=== PATIENT | female | born 1955 | race Two or more races ===

== ENCOUNTER 2023-09-09 09:53 | Inpatient (IN) | payer MEDICARE, OTHER ==
[~2023-09-09] VITALS: Ht 167.6 cm; Wt 66.9 kg
[2023-09-09] MEDS ORDERED: ONDANSETRON HCL 4 MG/2 ML VIAL IV ONE (10:45)
[2023-09-09] MEDS ORDERED: PANTOPRAZOLE 40 MG/10 ML VIAL INJ IV ONE (11:00)
[2023-09-09 11:15] LABS: Basophils # (auto) 0 10 ^3/uL (0-0.2); Basophils % (auto) 0.2 % (0.0-2.0); Eosinophils # (auto) 0 10 ^3/uL (0-0.8); Hematocrit 47.1 % (36.0-46.0); Hemoglobin 15.6 g/dL (12.2-16.2); Lymphocytes # (auto) 1.6 10 ^3/uL (0.4-5.4); Lymphocytes % (auto) 5.8 % (10.0-50.0); Mean Corpuscular Hemoglobin 27.4 pg (28.0-32.0); Mean Corpuscular Hgb Conc. 33.1 g/dL (32.0-36.0); Monocytes # (auto) 2.4 10 ^3/uL (0-1.3); Monocytes % (auto) 9.2 % (0.0-12.0); Neutrophils # (auto) 22.5 10 ^3/uL (1.6-8.6); Neutrophils % (auto) 84.8 % (37.0-80.0); Nucleated Red Blood Cells % 0.1 %; Red Blood Cells 5.67 10^6/uL (4.0-5.20); Red Cell Distribution Width 14.7 % (11.8-14.3); White Blood Cell 26.6 10^3/uL (4.4-10.8)
[2023-09-09 11:33] LABS: Alanine Aminotransferase 20 U/L (7-40); Albumin 5.6 g/dL (3.2-4.8); Alkaline Phosphatase 84 U/L (46-116); Anion Gap 30.00001 (5-15); Aspartate Aminotransferase 31 U/L (13-40); BUN/Creatinine Ratio 14.7 (10.0-20.0); Blood Urea Nitrogen 27 mg/dL (9-23); Calcium 10.4 mg/dL (8.7-10.4); Chloride 96 mmol/L (98-107); Glucose 130 mg/dL (74-106); Sodium 136 mmol/L (136-145)
[2023-09-09 11:34] LABS: Bilirubin, Total 0.7 mg/dL (0.2-1.0); Total Protein 8.9 g/dL (5.7-8.2)
[2023-09-09 11:54] LABS: Carbon Dioxide < 10 mmol/L (20-30)
[2023-09-09] MEDS ORDERED: INSULIN LANTUS (GLARGINE) 1 /0.01ml (100units/ml) SC ONE (12:00)
[2023-09-09] MEDS ORDERED: INSULIN DRIP 100 UNIT/100ML 100 ML IV SCH (12:00)
[2023-09-09] MEDS ORDERED: DEXTROSE (50%) 50ML SYRG IV PRN ×2 (12:00→16:30)
[2023-09-09] MEDS: ACCU-CHEK COMFORT CURVE STRIP VI SCH ×3 (12:00→15:00)
[2023-09-09] MEDS ORDERED: VANCOMYCIN 1GM/200ML 200 ML IV ONE (12:45)
[2023-09-09] MEDS ORDERED: SODIUM CHLORIDE 0.9% 1,000 ML IV ONE ×2 (12:45)
[2023-09-09] MEDS ORDERED: levoFLOXacin 500MG 100 ML IV ONE (12:45)
[2023-09-09 13:58] LABS: Urine Bacteria None Seen /hpf (None Seen)
[2023-09-09] MEDS ORDERED: IOHEXOL 350 MG/ML 100ML IJ ONE (14:15)
[2023-09-09] MEDS ORDERED: D5W/SOD CHL 0.45% 1,000 ML IV ONE (14:15)
[2023-09-09 15:00] LABS: COVID19 ANTIGEN SOFIA FIA NEGATIVE (NEGATIVE)
[2023-09-09 15:50] LABS: Urine Clarity HAZY (Clear); Urine Color Yellow (Yellow); Urine Specific Gravity 1.021 (1.001-1.035)
[2023-09-09 15:51] LABS: Urine Protein, UAD 3+ (Negative)
[2023-09-09 15:52] LABS: Urine Blood 3+ /uL (Negative); Urine Mucus FEW (None Seen); Urine WBC 5 /hpf (0 - 5)
[2023-09-09] MEDS ORDERED: NITROGLYCERIN 0.4 MG SL TAB SL PRN (16:30)
[2023-09-09] MEDS: SODIUM CHLORIDE 0.9% 1,000 ML IV SCH ×2 (16:30→18:43)
[2023-09-09] MEDS ORDERED: MORPHINE SULFATE INJ 2 MG/ml SYRG IV PRN (16:30)
[2023-09-09] MEDS ORDERED: DOCUSATE SOD 100 MG CAP PO PRN (16:30)
[2023-09-09] MEDS ORDERED: ACETAMINOPHEN 325 MG TAB PO PRN (16:30)
[2023-09-09] MEDS ORDERED: ROSU1TAB15 PO (16:44)
[2023-09-09] MEDS ORDERED: METO-289 PO (16:44)
[2023-09-09] MEDS ORDERED: AMLO1TAB23 PO (16:44)
[2023-09-09] MEDS ORDERED: InsuLIN REG 1unit/0.01ml Soln (100units/ml) SC SCH (17:00)
[2023-09-09] MEDS ORDERED: ACCU-CHEK COMFORT CURVE STRIP VI SCH (17:00)
[2023-09-09 17:12] LABS: Alanine Aminotransferase 12 U/L (7-40); Albumin 4.4 g/dL (3.2-4.8); Alkaline Phosphatase 59 U/L (46-116); Anion Gap 18 (5-15); Aspartate Aminotransferase 22 U/L (13-40); BUN/Creatinine Ratio 12.4 (10.0-20.0); Bilirubin, Total 0.5 mg/dL (0.2-1.0); Blood Urea Nitrogen 19 mg/dL (9-23); Calcium 7.9 mg/dL (8.7-10.4); Carbon Dioxide 13 mmol/L (20-30); Chloride 105 mmol/L (98-107); Glucose 83 mg/dL (74-106); Potassium 3.6 mmol/L (3.5-5.1); Sodium 136 mmol/L (136-145)
[2023-09-09 17:15] LABS: Triglycerides 112 mg/dL (< 150)
[2023-09-09 17:16] LABS: LDL Cholesterol 59 mg/dL (< 100)
[2023-09-09 17:17] LABS: Cholesterol 146 mg/dL (< 200); HDL Cholesterol 53 mg/dL (40-59)
[2023-09-09 19:09] VITALS: PULSE 87; RESP 20; O2SAT 95
[2023-09-09 19:52] LABS: INR 1.07 (0.9-1.15); Partial Thromboplastin Time 27.2 SEC (24.5-34.5); Prothrombin Time 11.2 sec (9.3-11.8)
[2023-09-09] MEDS: ATORVASTATIN 20 MG TAB PO SCH (21:43)
[2023-09-09] MEDS: PIPERACILLIN-TAZOB 3.375GM 100 ML IV SCH (21:44)
[2023-09-09] MEDS: metroNIDAZOLE 500MG/100ML 100 ML IV SCH (21:44)
[2023-09-09 23:26] VITALS: PULSE 91; RESP 11; O2SAT 96
[2023-09-10] MEDS: metroNIDAZOLE 500MG/100ML 100 ML IV SCH ×3 (06:05→21:40)
[2023-09-10] MEDS: PIPERACILLIN-TAZOB 3.375GM 100 ML IV SCH ×3 (06:05→22:24)
[2023-09-10 08:01] LABS: Basophils # (auto) 0.1 10 ^3/uL (0-0.2); Basophils % (auto) 0.4 % (0.0-2.0); Eosinophils # (auto) 0.1 10 ^3/uL (0-0.8); Eosinophils % (auto) 0.4 % (0.0-7.0); Hematocrit 40.6 % (36.0-46.0); Hemoglobin 13.6 g/dL (12.2-16.2); Lymphocytes # (auto) 1.3 10 ^3/uL (0.4-5.4); Lymphocytes % (auto) 9.7 % (10.0-50.0); Mean Corpuscular Hemoglobin 28.2 pg (28.0-32.0); Mean Corpuscular Hgb Conc. 33.5 g/dL (32.0-36.0); Mean Corpuscular Volume 83.9 fL (80.0-100.0); Monocytes # (auto) 1.8 10 ^3/uL (0-1.3); Neutrophils # (auto) 10.6 10 ^3/uL (1.6-8.6); Neutrophils % (auto) 76.5 % (37.0-80.0); Nucleated Red Blood Cells % 0.1 %; Red Blood Cells 4.83 10^6/uL (4.0-5.20); Red Cell Distribution Width 14.9 % (11.8-14.3); White Blood Cell 13.8 10^3/uL (4.4-10.8)
[2023-09-10 08:31] LABS: Alanine Aminotransferase 13 U/L (7-40); Albumin 4.5 g/dL (3.2-4.8); Alkaline Phosphatase 61 U/L (46-116); Anion Gap 13 (5-15); Aspartate Aminotransferase 34 U/L (13-40); BUN/Creatinine Ratio 10.1 (10.0-20.0); Bilirubin, Total 0.7 mg/dL (0.2-1.0); Blood Urea Nitrogen 14 mg/dL (9-23); Calcium 9.1 mg/dL (8.5-10.1); Carbon Dioxide 21 mmol/L (20-30); Chloride 104 mmol/L (98-107); Glucose 99 mg/dL (74-106); Potassium 3.1 mmol/L (3.5-5.1); Sodium 138 mmol/L (136-145)
[2023-09-10 08:32] LABS: Total Protein 7.2 g/dL (5.7-8.2)
[2023-09-10] MEDS: amLODIPine BESYLATE 5 MG TAB PO SCH (09:47)
[2023-09-10] MEDS: METOPROLOL SUCCINATE XL 50 MG TAB PO SCH (09:48)
[2023-09-10] MEDS ORDERED: PANTOPRAZOLE 40 MG/10 ML VIAL INJ IV SCH (10:00)
[2023-09-10] MEDS ORDERED: INSULIN LANTUS (GLARGINE) 1 /0.01ml (100units/ml) SC SCH (10:00)
[2023-09-10] MEDS: SODIUM CHLORIDE 0.9% 1,000 ML IV SCH ×2 (12:56→21:34)
[2023-09-10] MEDS: ONDANSETRON HCL 4 MG/2 ML VIAL IV PRN (19:09)
[2023-09-10] MEDS: ATORVASTATIN 20 MG TAB PO SCH (21:40)
[2023-09-11] VITALS (7 sets, daily range): BP systolic 105–139; BP diastolic 56–78; PULSE 58–92; RESP 15–20; TEMP 97.9–99.1; O2SAT 96–98
[2023-09-11] MEDS: ONDANSETRON HCL 4 MG/2 ML VIAL IV PRN (04:29)
[2023-09-11] MEDS: metroNIDAZOLE 500MG/100ML 100 ML IV SCH (06:00)
[2023-09-11] MEDS: PIPERACILLIN-TAZOB 3.375GM 100 ML IV SCH (06:00)
[2023-09-11 09:13] LABS: Basophils # (auto) 0.1 10 ^3/uL (0-0.2); Basophils % (auto) 0.5 % (0.0-2.0); Eosinophils # (auto) 0.1 10 ^3/uL (0-0.8); Eosinophils % (auto) 1.2 % (0.0-7.0); Hematocrit 40.2 % (36.0-46.0); Hemoglobin 13.2 g/dL (12.2-16.2); Lymphocytes # (auto) 1.8 10 ^3/uL (0.4-5.4); Lymphocytes % (auto) 15.1 % (10.0-50.0); Mean Corpuscular Hemoglobin 27.4 pg (28.0-32.0); Mean Corpuscular Hgb Conc. 32.8 g/dL (32.0-36.0); Mean Corpuscular Volume 83.3 fL (80.0-100.0); Monocytes # (auto) 1.6 10 ^3/uL (0-1.3); Monocytes % (auto) 13.5 % (0.0-12.0); Neutrophils # (auto) 8.2 10 ^3/uL (1.6-8.6); Neutrophils % (auto) 69.7 % (37.0-80.0); Red Blood Cells 4.82 10^6/uL (4.0-5.20); Red Cell Distribution Width 14.6 % (11.8-14.3); White Blood Cell 11.8 10^3/uL (4.4-10.8)
[2023-09-11 09:37] LABS: Alanine Aminotransferase 15 U/L (7-40); Alkaline Phosphatase 62 U/L (46-116); Anion Gap 10 (5-15); Aspartate Aminotransferase 32 U/L (13-40); BUN/Creatinine Ratio 5.4 (10.0-20.0); Blood Urea Nitrogen 6 mg/dL (9-23); Calcium 9.1 mg/dL (8.5-10.1); Carbon Dioxide 23 mmol/L (20-30); Chloride 103 mmol/L (98-107); Glucose 95 mg/dL (74-106); Potassium 3.5 mmol/L (3.5-5.1); Sodium 136 mmol/L (136-145)
[2023-09-11 09:38] LABS: Albumin 4.5 g/dL (3.2-4.8); Bilirubin, Total 0.7 mg/dL (0.2-1.0); Total Protein 7.3 g/dL (5.7-8.2)
[2023-09-11] MEDS: METOPROLOL SUCCINATE XL 50 MG TAB PO SCH (09:51)
[2023-09-11] MEDS: amLODIPine BESYLATE 5 MG TAB PO SCH (09:51)
[2023-09-11] MEDS ORDERED: POTASSIUM CHL 20 Meq TABLET PO ONE (10:15)
[2023-09-11] MEDS ORDERED: POLYETHYLENE GLYCOL 17 GM PWDR PO ONE (10:30)
[2023-09-11] MEDS ORDERED: PANTOPRAZOLE 40 MG TAB PO ONE (14:00)
[2023-09-11] MEDS: metroNIDAZOLE 500 MG TAB PO SCH ×2 (14:02→21:52)
[2023-09-11] MEDS: levoFLOXacin 500 MG TAB PO SCH (14:02)
[2023-09-11] MEDS: ONDANSETRON ODT 4 MG TAB PO PRN (19:53)
[2023-09-11] MEDS: ATORVASTATIN 20 MG TAB PO SCH (21:52)
[2023-09-12 05:09] VITALS: BP 111/70; PULSE 82; RESP 18; TEMP 97.8; O2SAT 96
[2023-09-12] MEDS: metroNIDAZOLE 500 MG TAB PO SCH ×2 (05:10→13:53)
[2023-09-12 08:00] VITALS: RESP 18
[2023-09-12 09:00] VITALS: BP 130/100; PULSE 93; RESP 20; TEMP 98.4; O2SAT 96
[2023-09-12] MEDS ORDERED: PANTOPRAZOLE 40 MG TAB PO SCH (10:00)
[2023-09-12] MEDS: amLODIPine BESYLATE 5 MG TAB PO SCH (10:20)
[2023-09-12] MEDS: levoFLOXacin 500 MG TAB PO SCH (10:20)
[2023-09-12] MEDS: METOPROLOL SUCCINATE XL 50 MG TAB PO SCH (10:20)
[2023-09-12 12:57] VITALS: BP 128/86; PULSE 89; RESP 20; TEMP 97.8; O2SAT 96
[2023-09-12 13:12] VITALS: TEMP 36.6
[2023-09-12] MEDS: ONDANSETRON ODT 4 MG TAB PO PRN (13:53)
[2023-09-12] MEDS ORDERED: LEVO500T91 PO (14:22)
[2023-09-12] MEDS ORDERED: ZOFR4T PO (14:22)
[2023-09-12] MEDS ORDERED: MET500T PO (14:22)
== END 2023-09-12 14:30 | disposition home or self-care (01) | DRG 871 ==
LOC: EDBD 09:53 → ER 09:53 → TELE 16:42 → TELE-EAST 09-10 22:57 → EAST 09-11 23:34
PROVIDERS: ADMIT Nurse Practitioner Family; ATTEND Internal Medicine
DX: A41.9 Sepsis, unspecified organism (principal); N17.0 Acute kidney failure with tubular necrosis; E87.4 Mixed disorder of acid-base balance; I10 Essential (primary) hypertension; E78.5 Hyperlipidemia, unspecified; F12.10 Cannabis abuse, uncomplicated; Z20.822 Contact with and (suspected) exposure to COVID-19; E87.6 Hypokalemia; K52.9 Noninfective gastroenteritis and colitis, unspecified; Z85.118 Personal history of other malignant neoplasm of bronchus and lung; Z90.710 Acquired absence of both cervix and uterus
CPT/HCPCS: 36415; 36600; 71045; 71275; 74176; 76705; 80053; 80061; 81001; 82010; 82805; 82962; 83036; 83605; 83690; 84443; 84484; 85025; 85379; 85610; 85730; 87040; 87426; 96365; 96368; 96375; 99291; C9113; G0378; J1956; J2405; J2543; J3490; Q0162

== ENCOUNTER 2024-08-24 08:46 | Inpatient (IN) | payer MEDICARE, OTHER ==
[~2024-08-24] VITALS: Ht 162.6 cm; Wt 60.1 kg
[~2024-08-24 08:46] MED LIST: AMLO1TAB23 PO; LEVO500T91 PO; MET500T PO; METO-289 PO; ROSU40TA47 PO; ZOFR4T PO
[2024-08-24 09:45] VITALS: PULSE 96; RESP 17; O2SAT 97
--- NOTE | 2024-08-24 09:50 | DVH ---
XY CHEST XRAY 1 VIEW, HISTORY: cough COMPARISON: XY CHEST PORTABLE on DOS: 09/09/23 XY CHEST PORTABLE on DOS: 09/09/23 TECHNICAL DATA: 1 view of the chest was obtained. FINDINGS: Lines and tubes: Right chest wall port. Cardiomediastinal silhouette: normal Pulmonary vasculature: normal Lung expansion: normal Lung airspace: Surgical jamel are seen in the left upper lung. Patchy left basilar airspace opacity . Lung interstitium: normal Pleura: Small left pleural effusion. Pneumothorax: no Bones: Unremarkable Other: no IMPRESSION: Surgical jamel are seen in the left upper lung. Patchy left basilar airspace opacity. Small left pl eural effusion.
--- NOTE | 2024-08-24 09:53 | ED.PDOC ---
History of Present Illness HPI Comments 69 y/o F, with a Hx of lung CA, HLD, HTN, and marijuana use, presents with c/o shortness of breath, cough, throat pain, and generalized bodyaches for 1 month, today. Patient endorses on unprovoked onset of symptoms that has been persisting for the past month and worsened, suddenly, today. Patient comments sitting upright and laying flat or moving improving and worsening symptoms, respectively. Patient states on being Dx with lung CA in 2019 and last having a PET scan for it a "few months ago" that was medically insignificant. She denies having any chest pain, palpitations, dizziness, fever, chills, or other associated symptoms or modifiers at this time. Chief Complaint: Shortness of Breath Time Seen by MD: 08:45 Primary Care Provider: antonia Smith Notes: Nurses Notes, Medications, Allergies Allergies: Coded Allergies: NO KNOWN ALLERGIES (Unverified , 09/09/23) Home Meds Active Scripts Ondansetron Odt 4MG Tab (ZOFRAN PO) 4 Mg Tb, 4 MG PO Q4HP PRN, #30 TAB Prov:TONY GORDON MD 09/12/23 Metronidazole (Metronidazole) 500 Mg Tab, 500 MG PO Q8HR, #21 TAB Prov:TONY GORDON MD 09/12/23 Levofloxacin Hemihydrate (LEVAQUIN 500 MG) 500 Mg Tab, 500 MG PO DAILY, #7 TAB Prov:TONY GORDON MD 09/12/23 Reported Medications Rosuvastatin Calcium (Rosuvastatin Calcium) 40 Mg Tab, 1 TAB PO DAILY 09/09/23 Metoprolol Succinate (Metoprolol Succinate Er) 50 Mg Tab, 1 TAB PO DAILY 09/09/23 Amlodipine Besylate (Amlodipine Besylate) 10 Mg Tab, 1 TAB PO DAILY 09/09/23 Information Source: Patient Mode of Arrival: Ambulatory Severity: Moderate Timing: Months Duration: Since onset Prehospital treatment: None Past Medical History PAST MEDICAL HISTORY: Cancer (lung ), High Lipids, HTN Surgical History: Appendectomy, Hysterectomy, Tonsillectomy Family History Family History: Family hx of Cancer Social History Smoker: Non-Smoker Alcohol: Denies ETOH Use Drugs: Marijuana Lives In: Home EENTM: reports: throat pain Respiratory: reports: cough, shortness of breath Musculoskeletal: reports: others (generalized bodyaches ) All Other Systems: Reviewed and Negative (negative unless otherwise stated above or in HPI) Physical Exam General Appearance: No Apparent Distress, Normal, Other (anxious appearing ) HEENT: Normal ENT Inspection, Pharynx Normal, TMs Normal Neck: Full Range of Motion, Non-Tender, Normal, Normal Inspection Respiratory: Chest Non-Tender, Lungs Clear, No Accessory Muscle Use, No Respiratory Distress, Normal Breath Sounds Cardiovascular: No Edema, No JVD, No Murmur, No Gallop, Normal Peripheral Pulses, Regular Rate/Rhythm Breast Exam: Deferred Gastrointestinal: No Organomegaly, Non Tender, No Pulsatile Mass, Normal Bowel Sounds, Soft Genitalia: Deferred Pelvic: Deferred Rectal: Deferred Extremities: No calf tenderness, Normal capillary refill, Normal inspection, Normal range of motion, Non-tender, No pedal edema Musculoskeletal : Apperance: Normal Neurologic: Alert, 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 Was a procedure done?: No Differential Dx Considerations may include: viral syndrome, URI, Covid19, PNA, pleural effusions X-Ray, Labs, Meds, VS Vital Signs Date Time Temp Pulse Resp B/P (MAP) Pulse Ox O2 Delivery O2 Flow Rate FiO2 08/24/24 12:56 98.8 96 17 122/68 (86) 96 98.8 08/24/24 12:56 96 17 96 Room Air 08/24/24 09:45 96 17 97 Room Air* 0 21 08/24/24 09:45 98.5 96 17 102/63 (76) 97 98.5 08/24/24 08:57 98.4 106 20 119/69 (86) 97 Lab Test 08/24/24 11:19 08/24/24 10:09 08/24/24 09:58 08/24/24 09:44 Range/Units Troponin I High Sensitivity < 3 L < 3 L </=34 ng/L White Blood Count 17.8 H 4.4-10.8 10^3/uL Red Blood Count 4.54 4.0-5.20 10^6/uL Hemoglobin 12.5 12.2-16.2 g/dL Hematocrit 37.8 36.0-46.0 % Mean Corpuscular Volume 83.3 80.0-100.0 fL Mean Corpuscular Hemoglobin 27.6 L 28.0-32.0 pg Mean Corpuscular Hemoglobin Concent 33.1 32.0-36.0 g/dL Red Cell Distribution Width 15.3 H 11.8-14.3 % Platelet Count 503 H 140-450 10^3/uL Mean Platelet Volume 6.8 L 6.9-10.8 fL Neutrophils (%) (Auto) 83.2 H 37.0-80.0 % Lymphocytes (%) (Auto) 7.5 L 10.0-50.0 % Monocytes (%) (Auto) 6.7 0.0-12.0 % Eosinophils (%) (Auto) 1.8 0.0-7.0 % Basophils (%) (Auto) 0.8 0.0-2.0 % Neutrophils # (Auto) 14.8 H 1.6-8.6 10 ^3/uL Lymphocytes # (Auto) 1.3 0.4-5.4 10 ^3/uL Monocytes # (Auto) 1.2 0-1.3 10 ^3/uL Eosinophils # (Auto) 0.3 0-0.8 10 ^3/uL Basophils # (Auto) 0.1 0-0.2 10 ^3/uL Nucleated Red Blood Cells 0.0 % Sodium Level 134 L 136-145 mmol/L Potassium Level 4.4 3.5-5.1 mmol/L Chloride Level 99 98-107 mmol/L Carbon Dioxide Level 26 20-31 mmol/L Anion Gap 9 5-15 Blood Urea Nitrogen 11 9-23 mg/dL Creatinine 1.10 H 0.550-1.02 mg/dL Glomerular Filtration Rate Calc 55 >90 mL/min BUN/Creatinine Ratio 10.0 10.0-20.0 Serum Glucose 110 H 74-106 mg/dL Calcium Level 10.4 8.7-10.4 mg/dL Magnesium Level 1.9 1.6-2.6 mg/dL Total Bilirubin 0.4 0.2-1.0 mg/dL Aspartate Amino Transferase (AST) 22 13-40 U/L Alanine Aminotransferase (ALT) 30 7-40 U/L Alkaline Phosphatase 105 46-116 U/L B-Type Natriuretic Peptide 36.91 0-100 pg/mL Total Protein 8.9 H 5.7-8.2 g/dL Albumin 5.1 H 3.2-4.8 g/dL D-Dimer, Quantitative 3.17 H 0.0-0.49 mg/L FEU Influenza Type A Antigen Negative Negative Influenza Type B Antigen Negative Negative SARS-CoV-2 Antigen (Rapid) Negative NEGATIVE [place] [address] Ph: [phone] DIAGNOSTIC IMAGING Diagnostic Imaging Report : [id number] Signed PATIENT: HONEY HASKINS ACCT: [id number] UNIT: [id number] : 1955 LOC: ER ROOM / BED: / AGE / SEX: 69 / F ADM STATUS: REG ER SERVICE 7 ORDERING PHYSICIAN: JUNE ARCINIEGA MD PROCEDURE(s): CXR1 - CHEST XRAY 1 VIEW REASON: cough ORDER NUMBER(s): [id number], ACCESSION NUMBER(s): [id number] XY CHEST XRAY 1 VIEW, HISTORY: cough COMPARISON: XY CHEST PORTABLE on DOS: 09/09/23 XY CHEST PORTABLE on DOS: 09/09/23 TECHNICAL DATA: 1 view of the chest was obtained. FINDINGS: Lines and tubes: Right chest wall port. Cardiomediastinal silhouette: normal Pulmonary vasculature: normal Lung expansion: normal Lung airspace: Surgical jamel are seen in the left upper lung. Patchy left basilar airspace opacity. Lung interstitium: normal Pleura: Small left pleural effusion. Pneumothorax: no Bones: Unremarkable Other: no IMPRESSION: Surgical jamel are seen in the left upper lung. Patchy left basilar airspace opacity. Small left pleural effusion. ATED BY: MED ROJAS MD DICTATED DATE/TIME: 08/24/24946 SIGNED BY: MED ROJAS MD SIGNED DATE/TIME: 08/24/24946 CC: Time of 1ST Reevaluation: 09:15 Reevaluation 1ST: Unchanged Patient Education/Counseling: Diagnosis, Treatment Family Education/Counseling: No Family Present Departure 1 Departure Time of Disposition: 13:23 Impression: Primary Impression: Chest pain Additional Impressions: Dyspnea Elevated d-dimer Disposition: 09 ADMITTED INPATIENT Admit to: Tele Condition: Guarded Discharged With: Self Critical Care Note Critical Care Time?: Yes (35 min-critical care time only) Stability Stability form required: No Heart Score Heart Score: Heart Score Response (Comments) Value History N/A 0 EKG N/A 0 Age >65 2 Risk Factors 1 or 2 risk factors 1 Troponin N/A 0 Total 3 I personally scribed for JUNE ARCINIEGA MD ([email or web address]) on 08/24/24 at 09:53. Electronically submitted by Tony Washington ([email or web address]). I personally scribed for JUNE ARCINIEGA MD ([email or web address]) on 08/24/24 at 10:08. Electronically submitted by Tony Washington ([email or web address]). JUNE ARCINIEGA MD Aug 24, 2024 09:53
[2024-08-24 10:21] LABS: Basophils # (auto) 0.1 10 ^3/uL (0-0.2); Eosinophils # (auto) 0.3 10 ^3/uL (0-0.8); Hematocrit 37.8 % (36.0-46.0); Monocytes # (auto) 1.2 10 ^3/uL (0-1.3)
[2024-08-24 10:23] LABS: Basophils % (auto) 0.8 % (0.0-2.0); Eosinophils % (auto) 1.8 % (0.0-7.0); Hemoglobin 12.5 g/dL (12.2-16.2); Lymphocytes # (auto) 1.3 10 ^3/uL (0.4-5.4); Lymphocytes % (auto) 7.5 % (10.0-50.0); Mean Corpuscular Hemoglobin 27.6 pg (28.0-32.0); Mean Corpuscular Hgb Conc. 33.1 g/dL (32.0-36.0); Mean Corpuscular Volume 83.3 fL (80.0-100.0); Monocytes % (auto) 6.7 % (0.0-12.0); Neutrophils # (auto) 14.8 10 ^3/uL (1.6-8.6); Neutrophils % (auto) 83.2 % (37.0-80.0); Platelet Count (auto) 503 10^3/uL (140-450); Red Blood Cells 4.54 10^6/uL (4.0-5.20); Red Cell Distribution Width 15.3 % (11.8-14.3); White Blood Cell 17.8 10^3/uL (4.4-10.8)
[2024-08-24 10:43] LABS: Alanine Aminotransferase 30 U/L (7-40); Alkaline Phosphatase 105 U/L (46-116); Anion Gap 9 (5-15); Aspartate Aminotransferase 22 U/L (13-40); Blood Urea Nitrogen 11 mg/dL (9-23); Calcium 10.4 mg/dL (8.7-10.4); Carbon Dioxide 26 mmol/L (20-31); Chloride 99 mmol/L (98-107); Magnesium 1.9 mg/dL (1.6-2.6); Potassium 4.4 mmol/L (3.5-5.1)
[2024-08-24 10:44] LABS: Bilirubin, Total 0.4 mg/dL (0.2-1.0)
[2024-08-24 11:12] LABS: COVID19 ANTIGEN SOFIA FIA NEGATIVE (NEGATIVE); Rapid Influenza A Negative (Negative); Rapid Influenza B Negative (Negative)
[2024-08-24 11:13] LABS: Albumin 5.1 g/dL (3.2-4.8); Glucose 110 mg/dL (74-106); Sodium 134 mmol/L (136-145); Total Protein 8.9 g/dL (5.7-8.2)
[2024-08-24] MEDS: IOHEXOL 350 MG/ML 100ML IJ ONE (12:51)
[2024-08-24 13:50] LABS: Urine Bacteria None Seen /hpf (None Seen)
[2024-08-24 14:11] LABS: Urine Blood TRACE /uL (Negative); Urine Clarity Turbid (Clear); Urine Color Yellow (Yellow); Urine Mucus FEW (None Seen); Urine Protein, UAD 1+ (Negative); Urine Specific Gravity 1.022 (1.001-1.035); Urine Urobilinogen 2 mg/dL (Negative); Urine WBC 11 /hpf (0 - 5)
--- NOTE | 2024-08-24 14:12 | DVH ---
CTA Chest with intravenous contrast INDICATION: r/o PE COMPARISON: CT CT ANGIO CHEST CONTRAST on DOS: 09/09/23 TECHNIQUE: Multidetector spiral CTA of the chest was performed of the chest with intravenous contrast . PULMONARY ANGIOGRAPHY PROTOCOL was utilized using a bolus-tracking technique centered on the main p ulmonary artery. Axial, coronal and sagittal multiplanar and MIP reformats were performed. Radiation Dose : 1. Chest: CTDI volume is 5.92 mGy. Dose-length product is 183.06 mGy*cm The dose indicators for CT are the volume Computed Tomography (CT) Dose Index (CTDIvol) and the Dose Length Product (DLP), and are measured in units of mGy and mGy-cm, respectively. These indicators are not patient dose, but values generated from the CT scanner acquisition factors. The report includes radiation exposure data for exposures received during this examination. Findings: Pulmonary artery: Evaluation of the peripheral pulmonary vasculature is limited due to respiratory motion. No large tonya tral or large segmental pulmonary embolism. Lower neck: Normal thyroid. Lungs: Postsurgical change in the left upper lobe. Slight interval increase in size of suprahilar mas s along the surgical jamel in the left upper lobe, now measuring approximately 2.0 x 1.4 cm. There is similar narrowing of left upper lobe pulmonary arteries within the mass. Slightly worsening nodula r interstitial thickening predominantly in the left lower lobe. Multiple pulmonary nodules again seen throughout the left lung, the largest in the left lower lobe measuring up to 5 mm, which appear over all similar in size and appearance when compared to prior. New indeterminate 3 mm nodule in the right lower lobe (3-74). Heart/Vascular Structures: Normal heart size. New small pericardial effusion. Right chest port cathet er terminates in the right atrium. Lymph Nodes: Mediastinal lymph node measuring 1.1 cm in short axis, adjacent to the left upper lobe / left suprahilar mass. Pleura: New loculated small left pleural effusion with regional pleural thickening, most prominently seen in posterior left lower lung. Musculoskeletal: No acute osseous abnormality. No suspicious intraosseous lesions. Soft tissues: Normal. Upper abdomen: Limited portions of the upper abdomen are unremarkable. IMPRESSION: 1. Evaluation of the peripheral pulmonary vasculature is limited due to respiratory motion. No large central or large segmental pulmonary embolism. 2. Postsurgical change in the left upper lobe. Slight interval increase in size of a suprahilar mass along the surgical jamel in the left upper lobe, now measuring approximately 2.0 x 1.4 cm, concerni ng for worsening neoplastic disease. Similar associated narrowing of left upper lobe pulmonary arteri es within the mass. 3. Slightly worsening nodular interstitial thickening predominantly in the left lower lobe which coul d be seen with lymphangitic carcinomatosis. 4. Overall similar pulmonary nodules throughout the left lung measuring up to 5 mm. New indeterminat e 3 mm nodule in the right lower lobe. 5. Indeterminate mediastinal lymph node measuring 1.1 cm in short axis, adjacent to the left upper lo be / left suprahilar mass. 6. New small pericardial effusion. New loculated small left pleural effusion with regional pleural th ickening. Findings could be related to the above neoplastic process.
[2024-08-24] MEDS ORDERED: ACETAMINOPHEN 325 MG TAB PO PRN (17:45)
[2024-08-24] MEDS ORDERED: MORPHINE SULFATE INJ 2 MG/ml SYRG IV PRN (17:45)
--- NOTE | 2024-08-24 17:58 | DVHHP2 ---
History of Present Illness History of Present Illness 69 y/o F, with a Hx of lung CA (per recent bone scan and 2month old PET, in remission; [facility]), HLD, HTN, and history of marijuana use, presents with c/o shortness of breath, cough, throat pain, and generalized bodyaches for 1 month. Patient has been having insidious onset of these symptoms. She has been suffering from these symptoms but today she finally thought of getting it checked up. She has high anxiety about the symptoms with concern of cancer. She also has pleuritic chest pain and anterior chest wall from her intractable cough. Patient states on being Dx with lung CA in 2019 and last having a PET scan for it a "few months ago" that was medically insignificant. She denies having any palpitations, dizziness, fever, chills, or other associated symptoms or modifiers at this time. Denies current use of marijuana or tobacco smoking. Review of Systems Review of Systems As per HPI Allergies: Coded Allergies: NO KNOWN ALLERGIES (Unverified , 09/09/23) Medications Current Medications Medications Dose Ordered Sig/John Route Start Time Stop Time Status Last Admin Dose Admin Acetaminophen/ Hydrocodone Bitart 1 tab Q4HP PRN PO 08/24/24 17:45 UNV Ondansetron HCl 4 mg Q4HP PRN IV 08/24/24 17:45 UNV Enoxaparin Sodium 40 mg DAILY SC 08/25/24 10:00 UNV Acetaminophen 650 mg Q6HP PRN PO 08/24/24 17:45 UNV Morphine Sulfate 2 mg Q4HPRN PRN IV 08/24/24 17:45 UNV Ceftriaxone Sodium 50 ml @ 100 mls/hr DAILY@09 IV 08/25/24 09:00 UNV Azithromycin 250 ml @ 125 mls/hr DAILY IV 08/25/24 10:00 UNV Ipratropium [place] 0.5 mg Q3HPRN PRN NEB 08/24/24 17:45 UNV Albuterol 2.5 mg Q3HPRN PRN NEB 08/24/24 17:45 UNV Lactated Ringer's 1,000 ml @ 150 mls/hr Q6H40M IV 08/24/24 17:45 08/24/24 21:00 UNV Exam Vital Signs Vital Signs Date Time Temp Pulse Resp B/P (MAP) Pulse Ox O2 Delivery O2 Flow Rate FiO2 08/24/24 15:08 100 18 136/81 (99) 96 08/24/24 12:56 98.8 98.8 08/24/24 12:56 Room Air 08/24/24 09:45 0 21 Exam GEN: Appears weak HEENT: NC/AT; dry mucous membranes CV: RRR, no m/r/g. LUNGS: Decreased lung sounds in all espitia, further decreased breath sounds in left lung espitia. ABD: Soft, NT/ND, NBS, no masses or organomegaly. EXT: skin Warm, well perfused. no rashes. No clubbing, cyanosis, or edema. NEURO: Ambulating with no limitations. No focal deficits. Labs/Xrays Labs Test 08/24/24 12:46 08/24/24 11:19 08/24/24 10:09 08/24/24 09:58 Range/Units Urine Color Yellow Yellow Urine Clarity Turbid H Clear Urine pH 6.0 5.0-9.0 Urine Specific [place] 1.022 1.001-1.035 Urine Protein 1+ H Negative Urine Ketones Negative Negative Urine Blood Trace H Negative /uL Urine Nitrite Negative Negative Urine Bilirubin Negative Negative Urine Urobilinogen 2 H Negative mg/dL Urine Leukocyte Esterase 1+ Negative /uL Urine RBC 3 0 - 4 /hpf Urine WBC 11 0 - 5 /hpf Urine Squamous Epithelial Cells Mod <5 /hpf Urine Bacteria None seen None Seen /hpf Urine Mucus Few None Seen Urine Glucose Normal Normal mg/dL Troponin I High Sensitivity < 3 L </=34 ng/L White Blood Count 17.8 H 4.4-10.8 10^3/uL Red Blood Count 4.54 4.0-5.20 10^6/uL Hemoglobin 12.5 12.2-16.2 g/dL Hematocrit 37.8 36.0-46.0 % Mean Corpuscular Volume 83.3 80.0-100.0 fL Mean Corpuscular Hemoglobin 27.6 L 28.0-32.0 pg Mean Corpuscular Hemoglobin Concent 33.1 32.0-36.0 g/dL Red Cell Distribution Width 15.3 H 11.8-14.3 % Platelet Count 503 H 140-450 10^3/uL Mean Platelet Volume 6.8 L 6.9-10.8 fL Neutrophils (%) (Auto) 83.2 H 37.0-80.0 % Lymphocytes (%) (Auto) 7.5 L 10.0-50.0 % Monocytes (%) (Auto) 6.7 0.0-12.0 % Eosinophils (%) (Auto) 1.8 0.0-7.0 % Basophils (%) (Auto) 0.8 0.0-2.0 % Neutrophils # (Auto) 14.8 H 1.6-8.6 10 ^3/uL Lymphocytes # (Auto) 1.3 0.4-5.4 10 ^3/uL Monocytes # (Auto) 1.2 0-1.3 10 ^3/uL Eosinophils # (Auto) 0.3 0-0.8 10 ^3/uL Basophils # (Auto) 0.1 0-0.2 10 ^3/uL Nucleated Red Blood Cells 0.0 % Sodium Level 134 L 136-145 mmol/L Potassium Level 4.4 3.5-5.1 mmol/L Chloride Level 99 98-107 mmol/L Carbon Dioxide Level 26 20-31 mmol/L Anion Gap 9 5-15 Blood Urea Nitrogen 11 9-23 mg/dL Creatinine 1.10 H 0.550-1.02 mg/dL Glomerular Filtration Rate Calc 55 >90 mL/min BUN/Creatinine Ratio 10.0 10.0-20.0 Serum Glucose 110 H 74-106 mg/dL Calcium Level 10.4 8.7-10.4 mg/dL Magnesium Level 1.9 1.6-2.6 mg/dL Total Bilirubin 0.4 0.2-1.0 mg/dL Aspartate Amino Transferase (AST) 22 13-40 U/L Alanine Aminotransferase (ALT) 30 7-40 U/L Alkaline Phosphatase 105 46-116 U/L B-Type Natriuretic Peptide 36.91 0-100 pg/mL Total Protein 8.9 H 5.7-8.2 g/dL Albumin 5.1 H 3.2-4.8 g/dL D-Dimer, Quantitative 3.17 H 0.0-0.49 mg/L FEU Test 08/24/24 09:44 Range/Units Influenza Type A Antigen Negative Negative Influenza Type B Antigen Negative Negative SARS-CoV-2 Antigen (Rapid) Negative NEGATIVE Assessment/Plan Assessment/Plan #Community-acquired pneumonia, Gram-negative Gram-positive, atypicals possible- symptoms and labs match with pneumonia-start ceftriaxone and azithromycin, IV fluid hydration; pleuritic chest pain from pneumonia we will give p.r.n. analgesia and msk relaxants #Viral pneumonia can not be ruled out #PE ruled out- CTA done PE ruled out, D-dimer was elevated. #History of lung cancer #Leukocytosis with neutrophilia; WBC 17.8 with neutrophil 83% #Thrombocytosis- platelets 503 #Hypertension #Hyperlipidemia #CKD -creatinine 1.1 Diet renal GI prophylaxis tolerating diet DVT prophylaxis Lovenox Med surge Full code Plan discussed with: Patient My Orders Orders - CHELSY BRYANT MD Procedure Category Date Status Time Admit ADMIT 08/24/24 Transmitted 17:42 Code Status CODE 08/24/24 Transmitted 17:42 Renal DIET 08/24/24 Transmitted Standard(2gna,3gk,Lopho) Dinner Hydrocodone-Acet PHA 08/24/24 Logged 5/325mg Tab ([place] 17:45 Ondansetron Hcl PHA 08/24/24 Logged (Zofran) 17:45 Enoxaparin Sodium PHA 08/25/24 Logged (Lovenox) 10:00 Complete Blood Count LAB 08/25/24 Verified 04:00 Comprehensive LAB 08/25/24 Verified Metabolic Panel 04:00 Acetaminophen Tablet PHA 08/24/24 Logged (Tylenol Tablet) 17:45 Bedrest With Bathroom MAHAD 08/24/24 In Process Privileg 17:42 Morphine Sulfate PHA 08/24/24 Logged Injection 17:45 Ceftriaxone 1gm/50ml PHA 08/24/24 Logged D5w (Rocephin) 17:45 Ceftriaxone 1gm/50ml PHA 08/25/24 Logged D5w (Rocephin) 09:00 Azithromycin 500mg/ PHA 08/25/24 Logged 250ml (Zithromax 50 10:00 Azithromycin 500mg/ PHA 08/24/24 Logged 250ml (Zithromax 50 17:45 Ipratropium Medneb PHA 08/24/24 Logged (Atrovent Medneb) 17:45 Med Jona Sub Treatment RT 08/24/24 Logged 17:42 Cont Med Neb Intial Tx RT 08/24/24 Logged 17:42 Inline Breath RT 08/24/24 Logged Treatment 17:42 Ippb Treatment RT 08/24/24 Logged 17:42 Albuterol Medneb PHA 08/24/24 Transmitted (Ventolin Medneb) 17:45 Ibuprofen Tablet PHA 08/24/24 Transmitted (Motrin Tablet) 17:45 Baclofen Tablet PHA 08/24/24 Transmitted (Liorisal Tablet) 17:45 Lactated Ringers Lr PHA 08/24/24 Transmitted 17:45 Date of Service: Aug 24, 2024 Billing Provider: CHELSY BRYANT MD Common Visit Codes: [id number] INP/OBS CARE (HIGH) CHELSY BRYANT MD Aug 24, 2024 17:58
[2024-08-24] MEDS: cefTRIAXone 1GM/50ML D5W 50 ML IV ONE (18:16)
[2024-08-24] MEDS: AZITHROMYCIN 500MG/ 250ML 250 ML IV ONE (18:21)
[2024-08-24] MEDS: LACTATED RINGER'S 1,000 ML IV SCH (18:21)
[2024-08-24] MEDS: IBUPROFEN 600 MG TAB PO ONE (18:54)
[2024-08-24] MEDS: BACLOFEN 10 MG TAB PO ONE (18:54)
[2024-08-24 20:33] VITALS: O2SAT 97
[2024-08-24 20:50] VITALS: PULSE 100; RESP 18; TEMP 98.1; O2SAT 97
[2024-08-25] VITALS (11 sets, daily range): BP systolic 93–109; BP diastolic 50–63; PULSE 78–97; RESP 15–18; TEMP 98.3–99; O2SAT 96–100
[2024-08-25 04:05] LABS: Basophils # (auto) 0 10 ^3/uL (0-0.2); Basophils % (auto) 0.4 % (0.0-2.0); Eosinophils # (auto) 0.2 10 ^3/uL (0-0.8); Eosinophils % (auto) 1.7 % (0.0-7.0); Hematocrit 32.6 % (36.0-46.0); Hemoglobin 10.8 g/dL (12.2-16.2); Lymphocytes # (auto) 1.6 10 ^3/uL (0.4-5.4); Lymphocytes % (auto) 13.5 % (10.0-50.0); Mean Corpuscular Hemoglobin 27.3 pg (28.0-32.0); Mean Corpuscular Hgb Conc. 33.3 g/dL (32.0-36.0); Mean Corpuscular Volume 82.1 fL (80.0-100.0); Monocytes # (auto) 1.2 10 ^3/uL (0-1.3); Monocytes % (auto) 10.1 % (0.0-12.0); Neutrophils % (auto) 74.3 % (37.0-80.0); Nucleated Red Blood Cells % 0.2 %; Platelet Count (auto) 395 10^3/uL (140-450); Red Blood Cells 3.97 10^6/uL (4.0-5.20); Red Cell Distribution Width 14.9 % (11.8-14.3); White Blood Cell 12.1 10^3/uL (4.4-10.8)
[2024-08-25 04:10] LABS: Alanine Aminotransferase 22 U/L (7-40); Albumin 4.2 g/dL (3.2-4.8); Alkaline Phosphatase 85 U/L (46-116); Anion Gap 10 (5-15); Aspartate Aminotransferase 16 U/L (13-40); BUN/Creatinine Ratio 12.2 (10.0-20.0); Bilirubin, Total 0.3 mg/dL (0.2-1.0); Blood Urea Nitrogen 12 mg/dL (9-23); Calcium 9.7 mg/dL (8.7-10.4); Carbon Dioxide 25 mmol/L (20-31); Chloride 101 mmol/L (98-107); Glucose 102 mg/dL (74-106); Potassium 3.8 mmol/L (3.5-5.1); Total Protein 7.4 g/dL (5.7-8.2)
[2024-08-25 04:20] LABS: Sodium 136 mmol/L (136-145)
[2024-08-25] MEDS: IPRATROPIUM BROM 0.5 MG/2.5ML INH SOL NEB PRN (06:12)
[2024-08-25] MEDS: ALBUTEROL SULF 2.5 MG/0.5ML(0.5%) NEB SOLN NEB PRN (06:12)
[2024-08-25] MEDS: HYDROcodone-ACET 5/325MG TAB PO PRN (10:10)
[2024-08-25] MEDS: cefTRIAXone 1GM/50ML D5W 50 ML IV SCH (10:11)
[2024-08-25] MEDS: AZITHROMYCIN 500MG/ 250ML 250 ML IV SCH (10:11)
[2024-08-25] MEDS: ENOXAPARIN SOD 40 MG/0.4 ML SYRINGE SC SCH (10:11)
--- NOTE | 2024-08-25 14:11 | DVHPNRES ---
Progress Note Date Seen: Aug 25, 2024 Resident Creating Document: JUSTINE GALO RESIDENT Medical Necessity Reason Pt with a Central, PICC or Fol: No Medical Necessity Reason Patient has a right-sided MediPort Subjective Patient reports: No new complaints, Feels better Changes from previous H/P or p: No Changes Review of Systems: HEENT:Abnormal (Neck pain), CVS:Normal, RESPIRATORY:Abnormal (Cough, white thick sputum. Chest pressure), GI:Normal, MSK:Normal, NEURO:Normal Objective vital signs Vital Sign Date Time Temp Pulse Resp B/P (MAP) Pulse Ox O2 Delivery O2 Flow Rate FiO2 08/25/24 13:00 98.3 85 15 93/51 (65) 97 98.3 08/25/24 10:00 Room Air* 0 21 Total Intake and Output 08/24/24 08/24/24 08/25/24 15:00 23:00 07:00 Intake Total 50 ml 0 ml Balance 50 ml 0 ml medications Current Medications Medications Dose Ordered Sig/John Route Start Time Stop Time Status Last Admin Dose Admin Acetaminophen/ Hydrocodone Bitart 1 tab Q4HP PRN PO 08/24/24 17:45 08/25/24 10:10 1 TAB Ondansetron HCl 4 mg Q4HP PRN IV 08/24/24 17:45 Enoxaparin Sodium 40 mg DAILY SC 08/25/24 10:00 08/25/24 10:11 40 MG Acetaminophen 650 mg Q6HP PRN PO 08/24/24 17:45 Morphine Sulfate 2 mg Q4HPRN PRN IV 08/24/24 17:45 Ceftriaxone Sodium 50 ml @ 100 mls/hr DAILY@09 IV 08/25/24 09:00 08/25/24 10:11 100 MLS/HR Azithromycin 250 ml @ 125 mls/hr DAILY IV 08/25/24 10:00 08/25/24 10:11 125 MLS/HR Ipratropium [place] 0.5 mg Q3HPRN PRN NEB 08/24/24 17:45 08/25/24 06:12 0.5 MG Albuterol 2.5 mg Q3HPRN PRN NEB 08/24/24 17:45 08/25/24 06:12 2.5 MG Examination: GENERAL:Normal, HEENT:Normal, NECK:Normal, LUNGS:Abnormal (Bilateral lower lobe crackles, bilateral air entry equal, right upper chest painful around the area of for but no skin changes.), CVS:Normal, ABDOMEN:Normal, MSK:Normal, SKIN:Normal, NEURO:Normal laboratory and microbiology Laboratory Tests 08/25/24 03:26 Test 08/25/24 03:26 Range/Units Serum Glucose 102 74-106 mg/dL Labs and/or images reviewed: Labs reviewed by me, Image(s) reviewed by me Problem List/Assessment/Plan Problem List/Assessment/Plan Assessment: Ms. Parham, 69-year-old female with a history of lung cancer (currently in remission), hyperlipidemia (HLD), hypertension (HTN), and marijuana use presents with a month-long history of shortness of breath, cough, throat pain, and generalized body aches. Her symptoms have been gradually worsening, leading her to seek medical attention due to anxiety about a potential cancer recurrence. She also reports pleuritic chest pain and anterior chest wall pain from persistent coughing. Her last PET scan a few months ago was medically insignificant and recent bone scan was unremarkable. additionally patient is having throat pain, that is radiated from upper chest, recent sick contact from who had upper respiratory tract infection, chills and low- grade fever at home. She denies palpitations, dizziness, and current use of marijuana or tobacco. patient remained hemodynamically stable, breathing comfortably in the room air. Plan: #1 Community-acquired pneumonia, Gram-negative Gram-positive, atypical possible: Ruled out influenza and COVID , RSV pending: Status post IV ceftriaxone and azithromycin for possible community-acquired pneumonia. Noted on CXR/ CT chest. check sputum culture. #2 Likely UTI , likely due to Gram-negative organisms: IV antibiotics to continue, blood culture and urine culture pending. No known history of resistant bugs. Not has been hospitalized recently. #3 Possible pericarditis /pleurisy: Pericardial effusion noted, CRP 6.28. Elevated. Patient likely will benefit from oral colchicine and ibuprofen along with pantoprazole. #4 Sepsis due to above: check for lactate to rule out end-organ ischemia. Sepsis was IV fluid to continue to keep the MAP over 65. #5 PE ruled out: Elevated D-dimer but EKG unremarkable, CT PE negative for pulmonary embolism. echo unremarkable no strain pattern. pleural effusion. #6 DVT yet to rule out: Given history of Carcinoma, elevated D-dimer we will rule out DVT all the physical examination unremarkable and patient is mobile. #7 Hypochromic, normocytic anemia: Likely iron-deficiency, we will ruled out any potential source of GI bleed and check for FOBT. Patient did not notice any bleeding. #8 iron-deficiency: Noted, needing iron supplements. #9 Reactive leukocytosis: Elevated platelet in 503, trending down to 95 this morning. #10 history of hypertension #11 history of hyperlipidemia #12 history of lung cancer: Status post left upper lung removal of lung mass jamel intact , as per patient partial success in surgical restriction. patient has surgical management after which received Keytruda, and other medications Which she could not recall. last chemotherapy more than 2 years back we should and for 3.5 years long. #13 history of marijuana abuse: New UDS pending. #14 Left pleural effusion: New loculated small left pleural effusion with regional pleural thickening. Could be associated with malignancy. Two small fluid difficult to aspirate. #15 post surgical changes in the left upper lobe, in situ jamel noted. 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 needs further follow up with oncologist. #19 possible pneumomediastinum: Patient has neck pain for past 1 month, chest CT concerning for small pockets of air in the mediastinum concerning for rupture of pulmonary bleb/ growth. Recheck CXR tomorrow two-view. #20 Chronic constipation: Patient last bowel movement 3 days back, asking for stool softener, given. #21 anxiety/Insomnia: Likely due to recent stress, anxiety of life-threatening cancer be back. Patient was tearful, emotional support given, patient is counseled. Temazepam at night as needed. PUD prophylaxis: protonix 40mg Continue. DVT prophylaxis: Lovenox 40mg to continue As high-risk of thromboembolism. Barriers to discharge: Medical diagnosis and management in progress. Patient lives with and family.Independent for ADL. PCP: Penny Stockton MD Specialist Relevant To Admission: Dr. Jasmine at [facility]. Last follow up in past month with -ve bone scan. Case discussed with Dr. Spicer. Code Status: Full Code. Discussion needed total 27 minutes bedside. Plan discussed with: Patient, Other (Primary team, RN.) My Orders My Orders Orders - JUSTINE GALO Procedure Category Date Status Time Lactated Ringer's PHA 08/25/24 In Process 13:45 Blood Culture AMOR 08/25/24 Logged 13:49 Urine Bacterial AMOR 08/25/24 Logged Culture 13:49 Respiratory Culture AMOR 08/25/24 Logged W/ Gs 13:49 Respiratory Syncytial LAB 08/25/24 Logged Virus Ag 13:49 Iron Panel LAB 08/25/24 Logged 13:49 Ferritin LAB 08/25/24 Logged 13:49 Date of Service: Aug 25, 2024 Billing Provider: DAMON SPICER MD Common Visit Codes: [id number] INP/OBS CARE(HIGH) Secondary Visit Codes: [id number] CARE PLAN 30 MINUTES JUSTINE GALO Aug 25, 2024 14:11 DAMON SPICER MD Aug 25, 2024 20:20
[2024-08-25 14:57] LABS: % Iron Saturation 12.9 % (15-50)
[2024-08-25 15:14] LABS: Erythrocyte Sedimentation Rate 81 mm/hr (0-20)
--- NOTE | 2024-08-25 15:19 | DVHSR ---
APPROVED REPORT EXAM: Two-dimensional and M-mode echocardiogram with Doppler and color Doppler. Blood Pressure: 93/51 mmHg INDICATION Rule out structural heart disease RISK FACTORS Height: 64, Weight: 124 DIMENSIONS LVDd4.1 (3.8-5.7cm)LA (2D)3.1 (1.9-4.0cm)Aortic Root2.7 (2.0-3.7cm) LVDs2.9 (2.5-4.0cm)LA (MM) (1.9-4.0cm)Aortic Cusp Exc1.5 (1.5-2.0cm) EF (%) 56.0 (55-70%)Rt. Atrium (1.9-4.0cm)Asc. Aorta cm Mitral Valve MitralMitral Stenosis E wave0.65m/sMV Mean GR.mmHg A wave0.73m/sMV Peak GR.mmHg E/A ratio0.92D MVAcm2 DECEL [id number] 1/2 [id number] IVRTmsDop MVA3.39cm2 Aortic Valve Aortic ValveAortic Stenosis V11.32m/Carlo Mean GR.3mmHg V21.35m/Carlo Peak GR.7mmHg LVOT Diameter1.7 (1.8-2.4cm)Doppler AVA2.22cm2 Pulmonic Valve V20.91m/s Tricuspid Valve TR Velocity1.74m/s [id number] Conclusion Normal left ventricular size and dimension. Normal left ventricular systolic function estimated ejec tion fraction 60%. Normal diastolic function Normal right ventricular size and dimension. Normal right ventricular systolic function. Normal biatrial size and dimension. Normal aortic valve structure and function. Normal mitral valve structure and function. Normal tricuspid valve structure and function. The pulmonary valve is grossly normal. There is a trace pericardial effusion
--- NOTE | 2024-08-25 20:28 | DVH ---
Procedure: US BiLat Lower DVT Study Date and Requested Time: 08/25/2024 07:41 PM History: rule out DVT. Comparison: None Technique: Multiple high resolution ambrocio-scale images with and without compression obtained of the bi lateral lower extremity veins, including the common femoral vein, deep femoral vein, proximal mid and distal superficial femoral vein, and popliteal vein. Additional limited images of the greater saphen ous vein also obtained. Augmentation performed as indicated. Color and spectral doppler flow images o btained as indicated. Findings: No visible intraluminal venous thrombus. No evidence of incompressibility or abnormal color or spectr al Doppler flow visualized in the bilateral lower extremity veins including, the common femoral vein, deep femoral vein, proximal mid and distal superficial femoral vein, and popliteal vein. Greater sap henous vein grossly unremarkable. Impression: No sonographic evidence of bilateral lower extremity deep venous thrombosis.
[2024-08-25] MEDS: LACTATED RINGER'S 1,000 ML IV ONE (20:38)
[2024-08-25] MEDS: ONDANSETRON HCL 4 MG/2 ML VIAL IV PRN (21:09)
[2024-08-26] VITALS (8 sets, daily range): BP systolic 92–128; BP diastolic 48–75; PULSE 78–111; RESP 18–20; TEMP 98.1–99.7; O2SAT 91–96
[2024-08-26 06:59] LABS: Chloride 102 mmol/L (98-107); Potassium 4.2 mmol/L (3.5-5.1)
[2024-08-26 07:00] LABS: Anion Gap 5 (5-15); Calcium 9.4 mg/dL (8.7-10.4); Carbon Dioxide 28 mmol/L (20-31)
[2024-08-26 07:05] LABS: BUN/Creatinine Ratio 10.8 (10.0-20.0); Glucose 100 mg/dL (74-106)
[2024-08-26 07:08] LABS: Basophils # (auto) 0 10 ^3/uL (0-0.2); Basophils % (auto) 0.3 % (0.0-2.0); Eosinophils # (auto) 0.2 10 ^3/uL (0-0.8); Eosinophils % (auto) 2.2 % (0.0-7.0); Hematocrit 30.3 % (36.0-46.0); Hemoglobin 10.2 g/dL (12.2-16.2); Lymphocytes # (auto) 1.5 10 ^3/uL (0.4-5.4); Lymphocytes % (auto) 14.2 % (10.0-50.0); Mean Corpuscular Hemoglobin 27.8 pg (28.0-32.0); Mean Corpuscular Hgb Conc. 33.7 g/dL (32.0-36.0); Mean Corpuscular Volume 82.6 fL (80.0-100.0); Monocytes # (auto) 1.3 10 ^3/uL (0-1.3); Monocytes % (auto) 11.8 % (0.0-12.0); Neutrophils # (auto) 7.7 10 ^3/uL (1.6-8.6); Neutrophils % (auto) 71.5 % (37.0-80.0); Platelet Count (auto) 354 10^3/uL (140-450); Red Blood Cells 3.66 10^6/uL (4.0-5.20); Red Cell Distribution Width 15.4 % (11.8-14.3); White Blood Cell 10.7 10^3/uL (4.4-10.8)
[2024-08-26 07:10] LABS: Blood Urea Nitrogen 9 mg/dL (9-23); Sodium 135 mmol/L (136-145)
--- NOTE | 2024-08-26 08:21 | DVH ---
CHEST RADIOGRAPH Indication: possible pneumomediastenum Technique: Single frontal view of the chest was obtained Comparison: XY CHEST XRAY 1 VIEW on DOS: 08/24/24 FINDINGS: Lines and Tubes: There is a right infusion catheter with its tip terminating in the superior vena cav a. Lungs: Chain sutures in the left upper lobe. Patchy left basilar opacities. Pleura: Small left pleural effusion. No pneumothorax. Cardiomediastinal contours: Unremarkable Bones: No acute osseous abnormality. IMPRESSION: 1. Left pleural effusion and patchy left basilar airspace disease.
[2024-08-26 09:48] LABS: INR 1.09 (0.9-1.15); Partial Thromboplastin Time 31.2 SEC (24.5-34.5); Prothrombin Time 11.5 sec (9.3-11.8)
--- NOTE | 2024-08-26 11:34 | DVHPNRES ---
Progress Note Date Seen: Aug 26, 2024 Resident Creating Document: JUSTINE GALO RESIDENT Medical Necessity Reason Pt with a Central, PICC or Fol: No Subjective Review of Systems HEENT: Abnormal (Neck pain), CVS:Normal, RESPIRATORY:Abnormal (Cough, white thick sputum, Chest pressure), GI:Normal, MSK:Normal, NEURO:Normal Objective vital signs Vital Sign Date Time Temp Pulse Resp B/P (MAP) Pulse Ox O2 Delivery O2 Flow Rate FiO2 08/26/24 09:16 96 Room Air 0.0 08/26/24 09:16 21 08/25/24 21:00 99.0 97 18 103/53 (70) 99.0 Total Intake and Output 08/25/24 08/25/24 08/26/24 15:00 23:00 07:00 Intake Total 1560 ml 400 ml Balance 1560 ml 400 ml medications Current Medications Medications Dose Ordered Sig/John Route Start Time Stop Time Status Last Admin Dose Admin Acetaminophen/ Hydrocodone Bitart 1 tab Q4HP PRN PO 08/24/24 17:45 08/26/24 06:34 1 TAB Ondansetron HCl 4 mg Q4HP PRN IV 08/24/24 17:45 08/25/24 21:09 4 MG Enoxaparin Sodium 40 mg DAILY SC 08/25/24 10:00 08/26/24 09:15 40 MG Acetaminophen 650 mg Q6HP PRN PO 08/24/24 17:45 Morphine Sulfate 2 mg Q4HPRN PRN IV 08/24/24 17:45 Ceftriaxone Sodium 50 ml @ 100 mls/hr DAILY@09 IV 08/25/24 09:00 08/26/24 09:13 100 MLS/HR Azithromycin 250 ml @ 125 mls/hr DAILY IV 08/25/24 10:00 08/25/24 10:11 125 MLS/HR Ipratropium [place] 0.5 mg Q3HPRN PRN NEB 08/24/24 17:45 08/25/24 18:55 0.5 MG Albuterol 2.5 mg Q3HPRN PRN NEB 08/24/24 17:45 08/25/24 18:55 2.5 MG Examination GENERAL:Normal, HEENT:Normal, NECK:Normal, LUNGS:Abnormal (Bilateral lower lobe crackles, bilateral air entry equal, right upper chest painful around the area of for but no skin changes.), CVS:Normal, ABDOMEN:Normal, MSK:Normal, SKIN:Normal, NEURO:Normal laboratory and microbiology Laboratory Tests 08/26/24 05:36 Test 08/26/24 05:36 Range/Units Serum Glucose 100 74-106 mg/dL Labs and/or images reviewed: Labs reviewed by me, Image(s) reviewed by me Problem List/Assessment/Plan Problem List/Assessment/Plan Assessment: Ms. Parham, 69-year-old female with a history of lung cancer (currently in remission), hyperlipidemia (HLD), hypertension (HTN), and marijuana use presents with a month-long history of shortness of breath, cough, throat pain, and generalized body aches. Her symptoms have been gradually worsening, leading her to seek medical attention due to anxiety about a potential cancer recurrence. She also reports pleuritic chest pain and anterior chest wall pain from persistent coughing. Her last PET scan a few months ago was medically insignificant and recent bone scan was unremarkable. additionally patient is having throat pain, that is radiated from upper chest, recent sick contact from who had upper respiratory tract infection, chills and low- grade fever at home. She denies palpitations, dizziness, and current use of marijuana or tobacco. patient remained hemodynamically stable, breathing comfortably in the room air. Plan: #1 Community-acquired pneumonia, Gram-negative Gram-positive, atypical possible: Ruled out influenza and COVID. RSV pending: . Noted on CXR/ CT chest. check sputum culture. Follow cultures, adjust antibiotics accordingly. Continue IV ceftriaxone and azithromycin for possible community-acquired pneumonia cxr stable. #2 Likely UTI , likely due to Gram-negative organisms: IV antibiotics to continue, blood culture and urine culture pending. No known history of resistant bugs. Not has been hospitalized recently. Follow culture, adjust antibiotics accordingly. #3 Possible pericarditis /pleurisy: Pericardial effusion noted, CRP and ESR Elevated. Echo confirmed with trace pleural effusion. Will discuss benefits from oral colchicine and ibuprofen along with pantoprazole. #4 Sepsis due to above: check for lactate to rule out end-organ ischemia. Sepsis was IV fluid to continue to keep the MAP over 65. #5 PE ruled out: Elevated D-dimer but EKG unremarkable, CT PE negative for pulmonary embolism. echo unremarkable no strain pattern. pleural effusion. #6 DVT ruled out: Given history of Carcinoma, elevated D-dimer, US -ve. #7 Hypochromic, normocytic anemia: Likely iron-deficiency, we will ruled out any potential source of GI bleed and check for FOBT. Patient did not notice any bleeding. #8 iron-deficiency: Noted, needing iron supplements. IV iron 1/5 day continue, change to oral at discharge. #9 Reactive leukocytosis: Elevated platelet in 503, trending down to 95 this morning. Resolved. #10 history of hypertension: At home amlodipine 10 mg and metoprolol succinate 50 mg p.o. daily. Softer BP with recent sepsis needs hold of these medications. Target blood pressure 140/90 mmHg or below and is nondiabetic adult. #11 history of hyperlipidemia: At home patient is on 40 mg rosuvastatin, at discharge to continue. #12 history of lung cancer: Status post left upper lung removal of lung mass jamel intact , as per patient partial success in surgical restriction. patient has surgical management after which received Keytruda, and other medications Which she could not recall. last chemotherapy more than 2 years back we should and for 3.5 years long. #13 history of marijuana abuse: New UDS pending. #14 Left pleural effusion: New loculated small left pleural effusion with regional pleural thickening. Could be associated with malignancy. Two small fluid difficult to aspirate. #15 post surgical changes in the left upper lobe, in situ jamel noted. 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 #18 reactive lymphocytosis: Due to infection in the active lymphocytosis possible: pulmonary nodules throughout the left lung measuring up to 5 mm. needs further follow up with oncologist. #19 possible pneumomediastinum, yet to rule out: Patient has neck pain for past 1 month, chest CT concerning for small pockets of air in the mediastinum concerning for rupture of pulmonary bleb/ growth. Recheck CXR two-view unremarkable. We will review the chest imaging with radiologist/cloud systems architect for clarity. #20 Chronic constipation: Patient last bowel movement 3 days back, asking for stool softener, given. #21 anxiety/Insomnia: Likely due to recent stress, anxiety of life-threatening cancer be back. Patient was tearful, emotional support given, patient is counseled. Temazepam at night as needed. PUD prophylaxis: protonix 40mg Continue. DVT prophylaxis: Lovenox SC 40mg to continue As high-risk of thromboembolism. Barriers to discharge: Medical diagnosis and management in progress. Patient lives with and family.Independent for ADL. PCP: Penny Stockton MD Specialist Relevant To Admission: Dr. Jasmine at [facility]. Last follow up in past month with -ve bone scan. Most importantly at discharge, In order to eliminate for the chance of cancer recurrence: We will consider interval CT chest with contrast in 8-10 weeks to compared with the present imaging. Case discussed with Dr. Spicer. Code Status: Full Code. Discussion needed total 27 minutes bedside. Patient remains in the med surge unit for now. Plan discussed with: Patient, Other (Primary team, RN) My Orders My Orders Orders - JUSTINE GALO Procedure Category Date Status Time Blood Culture AMOR 08/25/24 In Process 13:49 Urine Bacterial AMOR 08/25/24 In Process Culture 13:49 Respiratory Culture AMOR 08/25/24 Logged W/ Gs 13:49 Echo 2d Mode Cardiac US 08/25/24 Resulted DOP 14:03 Bilat Lower Dvt US 08/25/24 Resulted 19:21 Chest Xray 1 View XY 08/26/24 Resulted 04:00 Date of Service: Aug 26, 2024 Billing Provider: DAMON SPICER MD Common Visit Codes: [id number] INP/OBS CARE(HIGH) Secondary Visit Codes: [id number] CARE PLAN 30 MINUTES JUSTINE GALO Aug 26, 2024 11:34 DAMON SPICER MD Aug 26, 2024 20:19
[2024-08-26] MEDS: IRON SUCROSE COMPLEX 110 ML IV SCH (12:26)
[2024-08-26] MEDS: LACTULOSE 20Gm/30ML SOLN PO ONE (12:26)
[2024-08-26] MEDS: DOCUSATE SOD 100 MG CAP PO ONE (12:26)
[2024-08-26] MEDS: IBUPROFEN 600 MG TAB PO SCH (16:41)
[2024-08-26] MEDS: COLCHICINE 0.6 MG CAP PO SCH (21:07)
[2024-08-26] MEDS: TEMAZEPAM 15 MG CAP PO PRN (21:09)
[2024-08-27] VITALS (9 sets, daily range): BP systolic 99–108; BP diastolic 55–61; PULSE 65–128; RESP 18–20; TEMP 98.4–98.6; O2SAT 90–100
--- NOTE | 2024-08-27 12:19 | DVHDSRES ---
Discharge Summary Date of Admission Resident Creating Document: JUSTINE GALO RESIDENT Aug 24, 2024 at 17:42 Date of Discharge: Aug 27, 2024 Admitting Diagnosis Shortness of breath Labs/Diagnostic Data: Laboratory Results Test 08/26/24 09:06 08/26/24 05:36 08/25/24 03:26 08/24/24 12:46 Prothrombin Time 11.5 sec (9.3-11.8) Prothrombin Time INR 1.09 (0.9-1.15) Activated Partial Thromboplast Time 31.2 SEC (24.5-34.5) White Blood Count 10.7 10^3/uL (4.4-10.8) Red Blood Count 3.66 10^6/uL (4.0-5.20) Hemoglobin 10.2 g/dL (12.2-16.2) Hematocrit 30.3 % (36.0-46.0) Mean Corpuscular Volume 82.6 fL (80.0-100.0) Mean Corpuscular Hemoglobin 27.8 pg (28.0-32.0) Mean Corpuscular Hemoglobin Concent 33.7 g/dL (32.0-36.0) Red Cell Distribution Width 15.4 % (11.8-14.3) Platelet Count 354 10^3/uL (140-450) Mean Platelet Volume 7.2 fL (6.9-10.8) Neutrophils (%) (Auto) 71.5 % (37.0-80.0) Lymphocytes (%) (Auto) 14.2 % (10.0-50.0) Monocytes (%) (Auto) 11.8 % (0.0-12.0) Eosinophils (%) (Auto) 2.2 % (0.0-7.0) Basophils (%) (Auto) 0.3 % (0.0-2.0) Neutrophils # (Auto) 7.7 10 ^3/uL (1.6-8.6) Lymphocytes # (Auto) 1.5 10 ^3/uL (0.4-5.4) Monocytes # (Auto) 1.3 10 ^3/uL (0-1.3) Eosinophils # (Auto) 0.2 10 ^3/uL (0-0.8) Basophils # (Auto) 0 10 ^3/uL (0-0.2) Nucleated Red Blood Cells 0.0 % Sodium Level 135 mmol/L (136-145) Potassium Level 4.2 mmol/L (3.5-5.1) Chloride Level 102 mmol/L (98-107) Carbon Dioxide Level 28 mmol/L (20-31) Anion Gap 5 (5-15) Blood Urea Nitrogen 9 mg/dL (9-23) Creatinine 0.83 mg/dL (0.550-1.02) Glomerular Filtration Rate Calc 77 mL/min (>90) BUN/Creatinine Ratio 10.8 (10.0-20.0) Serum Glucose 100 mg/dL (74-106) Calcium Level 9.4 mg/dL (8.7-10.4) Erythrocyte Sedimentation Rate 81 mm/hr (0-20) Iron Level 33 ug/dL (50-170) Total Iron Binding Capacity 255 ug/dL (250-425) Percent Iron Saturation 12.9 % (15-50) Ferritin 244.5 ng/mL (10-291) Total Bilirubin 0.3 mg/dL (0.2-1.0) Aspartate Amino Transferase (AST) 16 U/L (13-40) Alanine Aminotransferase (ALT) 22 U/L (7-40) Alkaline Phosphatase 85 U/L (46-116) C-Reactive Protein High Sensitivity 6.28 mg/dL (<1.0) Total Protein 7.4 g/dL (5.7-8.2) Albumin 4.2 g/dL (3.2-4.8) Urine Color Yellow (Yellow) Urine Clarity Turbid (Clear) Urine pH 6.0 (5.0-9.0) Urine Specific [place] 1.022 (1.001-1.035) Urine Protein 1+ (Negative) Urine Ketones Negative (Negative) Urine Blood Trace /uL (Negative) Urine Nitrite Negative (Negative) Urine Bilirubin Negative (Negative) Urine Urobilinogen 2 mg/dL (Negative) Urine Leukocyte Esterase 1+ /uL (Negative) Urine RBC 3 /hpf (0 - 4) Urine WBC 11 /hpf (0 - 5) Urine Squamous Epithelial Cells Mod /hpf (<5) Urine Bacteria None seen /hpf (None Seen) Urine Mucus Few (None Seen) Urine Glucose Normal mg/dL (Normal) Test 08/24/24 11:19 08/24/24 10:09 08/24/24 09:58 08/24/24 09:44 Troponin I High Sensitivity < 3 ng/L (</=34) Magnesium Level 1.9 mg/dL (1.6-2.6) B-Type Natriuretic Peptide 36.91 pg/mL (0-100) D-Dimer, Quantitative 3.17 mg/L FEU (0.0-0.49) Influenza Type A Antigen Negative (Negative) Influenza Type B Antigen Negative (Negative) SARS-CoV-2 Antigen (Rapid) Negative (NEGATIVE) Other Laboratory Tests 08/26/24 05:36 Brief Hx & Hospital Course: Hospital course: Ms. Parham, 69-year-old female with a history of lung cancer (currently in remission), hyperlipidemia (HLD), hypertension (HTN), and marijuana use presents with a month-long history of shortness of breath, cough, throat pain, and generalized body aches. Her symptoms have been gradually worsening, leading her to seek medical attention due to anxiety about a potential cancer recurrence. She also reports pleuritic chest pain and anterior chest wall pain from persistent coughing. Her last PET scan a few months ago was medically insignificant and recent bone scan was unremarkable. additionally patient is having throat pain, that is radiated from upper chest, recent sick contact from who had upper respiratory tract infection, chills and low- grade fever at home. She denies palpitations, dizziness, and current use of marijuana or tobacco. Patient lives with and family. Independent for ADL. Patient remained hemodynamically stable, breathing comfortably in the room air, switched to oral antibiotics and discharged home. Conditions Treated in hospital #1 Community-acquired pneumonia, Gram-negative Gram-positive, atypical possible #2 UTI ruled out. #3 Acute Pericarditis /pleurisy #4 Sepsis due to above #5 PE ruled out #6 DVT ruled out #7 Hypochromic, normocytic anemia #8 iron-deficiency: continue iron rich diet with vitamin c #9 Reactive leukocytosis #10 history of hypertension: continue home medication. #11 history of hyperlipidemia: continue home meds #12 history of lung cancer, now in remission #13 history of marijuana abuse #14 Left pleural effusion, mild #15 post surgical changes in the left upper lobe, in situ jamel noted. #16 interval increase of the mass / suprahilar mass: CT noted 2.0 x 1.4 cm needs follow up. 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 needs further follow up with oncologist. #19 pneumomediastinum, ruled out #20 Chronic constipation #21 anxiety/Insomnia Physical Examination: GENERAL:Normal, HEENT:Normal, NECK:Normal, LUNGS:Abnormal (Bilateral lower lobe crackles improved, bilateral air entry equal, right upper chest painful around the area of for but no skin changes.), CVS:Normal, ABDOMEN:Normal, MSK:Normal, SKIN:Normal, NEURO:Normal Follow up: Penny Stockton MD , Discharge clinic follow up. Specialist Relevant To Admission: Dr. Jasmine at [facility]. Last follow up in past month with -ve bone scan. Most importantly at discharge, In order to eliminate for the chance of cancer recurrence: We will consider interval CT chest with contrast in 8-10 weeks to compared with the present imaging. Case discussed with Dr. Spicer. Discharge planning needed 37 minutes of discussion. Consults/Reason for consult None Operations or Procedures [place] [id number] Ph: [phone] DIAGNOSTIC IMAGING Diagnostic Imaging Report : [id number] Signed PATIENT: HONEY PARHAM ACCT: [id number] UNIT: [id number] : 1955 LOC: [facility] ROOM / BED: [address] [place] [address] AGE / SEX: 69 / F ADM STATUS: ADM IN SERVICE 0400 ORDERING PHYSICIAN: JUSTINE GALO RESIDENT PROCEDURE(s): CXR1 - CHEST XRAY 1 VIEW REASON: possible pneumomediastenum ORDER NUMBER(s): [id number], ACCESSION NUMBER(s): [id number] CHEST RADIOGRAPH Indication: possible pneumomediastenum Technique: Single frontal view of the chest was obtained Comparison: XY CHEST XRAY 1 VIEW on DOS: 08/24/24 FINDINGS: Lines and Tubes: There is a right infusion catheter with its tip terminating in the superior vena cava. Lungs: Chain sutures in the left upper lobe. Patchy left basilar opacities. Pleura: Small left pleural effusion. No pneumothorax. Cardiomediastinal contours: Unremarkable Bones: No acute osseous abnormality. IMPRESSION: 1. Left pleural effusion and patchy left basilar airspace disease. ATED BY: LUCHO JIMENEZ MD DICTATED DATE/TIME: 08/26/24817 SIGNED BY: LUCHO JIMENEZ MD SIGNED DATE/TIME: 08/26/24817 CC: [place] [id number] Ph: [phone] DIAGNOSTIC IMAGING Diagnostic Imaging Report : [id number] Signed PATIENT: HONEY PARHAM ACCT: [id number] UNIT: [id number] : 1955 LOC: [facility] ROOM / BED: [address] [place] [address] AGE / SEX: 69 / F ADM STATUS: ADM IN SERVICE 20 ORDERING PHYSICIAN: JUSTINE GALO RESIDENT PROCEDURE(s): BLDVT - BiLat Lower DVT REASON: rule out DVT. ORDER NUMBER(s): [id number], ACCESSION NUMBER(s): [id number] Procedure: US BiLat Lower DVT Study Date and Requested Time: 08/25/2024 07:41 PM History: rule out DVT. Comparison: None Technique: Multiple high resolution ambrocio-scale images with and without compression obtained of the bilateral lower extremity veins, including the common femoral vein, deep femoral vein, proximal mid and distal superficial femoral vein, and popliteal vein. Additional limited images of the greater saphenous vein also obtained. Augmentation performed as indicated. Color and spectral doppler flow images obtained as indicated. Findings: No visible intraluminal venous thrombus. No evidence of incompressibility or abnormal color or spectral Doppler flow visualized in the bilateral lower extremity veins including, the common femoral vein, deep femoral vein, proximal mid and distal superficial femoral vein, and popliteal vein. Greater saphenous vein grossly unremarkable. Impression: No sonographic evidence of bilateral lower extremity deep venous thrombosis. ATED BY: MYRIAM MCLEOD DO DICTATED DATE/TIME: 08/25/242025 SIGNED BY: MYRIAM MCLEOD DO SIGNED DATE/TIME: 08/25/242025 CC: [place] [id number] Ph: [phone] DIAGNOSTIC IMAGING Diagnostic Imaging Report : [id number] Signed PATIENT: HONEY PARHAM ACCT: [id number] UNIT: [id number] : 1955 LOC: ER ROOM / BED: / AGE / SEX: 69 / F ADM STATUS: REG ER SERVICE 1156 ORDERING PHYSICIAN: JUNE ARCINIEGA MD PROCEDURE(s): CTACH - CT ANGIO CHEST CONTRAST REASON: r/o PE ORDER NUMBER(s): [id number], ACCESSION NUMBER(s): [id number] CTA Chest with intravenous contrast INDICATION: r/o PE COMPARISON: CT CT ANGIO CHEST CONTRAST on DOS: 09/09/23 TECHNIQUE: Multidetector spiral CTA of the chest was performed of the chest with intravenous contrast. PULMONARY ANGIOGRAPHY PROTOCOL was utilized using a bolus- tracking technique centered on the main pulmonary artery. Axial, coronal and sagittal multiplanar and MIP reformats were performed. Radiation Dose : 1. Chest: CTDI volume is 5.92 mGy. Dose-length product is 183.06 mGy*cm The dose indicators for CT are the volume Computed Tomography (CT) Dose Index (CTDIvol) and the Dose Length Product (DLP), and are measured in units of mGy and mGy-cm, respectively. These indicators are not patient dose, but values generated from the CT scanner acquisition factors. The report includes radiation exposure data for exposures received during this examination. Findings: Pulmonary artery: Evaluation of the peripheral pulmonary vasculature is limited due to respiratory motion. No large central or large segmental pulmonary embolism. Lower neck: Normal thyroid. Lungs: Postsurgical change in the left upper lobe. Slight interval increase in size of suprahilar mass along the surgical jamel in the left upper lobe, now measuring approximately 2.0 x 1.4 cm. There is similar narrowing of left upper lobe pulmonary arteries within the mass. Slightly worsening nodular interstitial thickening predominantly in the left lower lobe. Multiple pulmonary nodules again seen throughout the left lung, the largest in the left lower lobe measuring up to 5 mm, which appear overall similar in size and appearance when compared to prior. New indeterminate 3 mm nodule in the right lower lobe (3-74). Heart/Vascular Structures: Normal heart size. New small pericardial effusion. Right chest port catheter terminates in the right atrium. Lymph Nodes: Mediastinal lymph node measuring 1.1 cm in short axis, adjacent to the left upper lobe / left suprahilar mass. Pleura: New loculated small left pleural effusion with regional pleural thickening, most prominently seen in posterior left lower lung. Musculoskeletal: No acute osseous abnormality. No suspicious intraosseous lesions. Soft tissues: Normal. Upper abdomen: Limited portions of the upper abdomen are unremarkable. IMPRESSION: 1. Evaluation of the peripheral pulmonary vasculature is limited due to respiratory motion. No large central or large segmental pulmonary embolism. 2. Postsurgical change in the left upper lobe. Slight interval increase in size of a suprahilar mass along the surgical jamel in the left upper lobe, now measuring approximately 2.0 x 1.4 cm, concerning for worsening neoplastic disease. Similar associated narrowing of left upper lobe pulmonary arteries within the mass. 3. Slightly worsening nodular interstitial thickening predominantly in the left lower lobe which could be seen with lymphangitic carcinomatosis. 4. Overall similar pulmonary nodules throughout the left lung measuring up to 5 mm. New indeterminate 3 mm nodule in the right lower lobe. 5. Indeterminate mediastinal lymph node measuring 1.1 cm in short axis, adjacent to the left upper lobe / left suprahilar mass. 6. New small pericardial effusion. New loculated small left pleural effusion with regional pleural thickening. Findings could be related to the above neoplastic process. ATED BY: ABDIEL MOORE MD DICTATED DATE/TIME: 08/24/241408 SIGNED BY: ABDIEL MOORE MD SIGNED DATE/TIME: 08/24/241408 CC: [place] [id number] Ph: [phone] DIAGNOSTIC IMAGING Diagnostic Imaging Report : [id number] Signed PATIENT: HONEY PARHAM ACCT: [id number] UNIT: [id number] : 1955 LOC: ER ROOM / BED: / AGE / SEX: 69 / F ADM STATUS: REG ER SERVICE 1156 ORDERING PHYSICIAN: JUNE ARCINIEGA MD PROCEDURE(s): CTACH - CT ANGIO CHEST CONTRAST REASON: r/o PE ORDER NUMBER(s): [id number], ACCESSION NUMBER(s): [id number] CTA Chest with intravenous contrast INDICATION: r/o PE COMPARISON: CT CT ANGIO CHEST CONTRAST on DOS: 09/09/23 TECHNIQUE: Multidetector spiral CTA of the chest was performed of the chest with intravenous contrast. PULMONARY ANGIOGRAPHY PROTOCOL was utilized using a bolus- tracking technique centered on the main pulmonary artery. Axial, coronal and sagittal multiplanar and MIP reformats were performed. Radiation Dose : 1. Chest: CTDI volume is 5.92 mGy. Dose-length product is 183.06 mGy*cm The dose indicators for CT are the volume Computed Tomography (CT) Dose Index (CTDIvol) and the Dose Length Product (DLP), and are measured in units of mGy and mGy-cm, respectively. These indicators are not patient dose, but values generated from the CT scanner acquisition factors. The report includes radiation exposure data for exposures received during this examination. Findings: Pulmonary artery: Evaluation of the peripheral pulmonary vasculature is limited due to respiratory motion. No large central or large segmental pulmonary embolism. Lower neck: Normal thyroid. Lungs: Postsurgical change in the left upper lobe. Slight interval increase in size of suprahilar mass along the surgical jamel in the left upper lobe, now measuring approximately 2.0 x 1.4 cm. There is similar narrowing of left upper lobe pulmonary arteries within the mass. Slightly worsening nodular interstitial thickening predominantly in the left lower lobe. Multiple pulmonary nodules again seen throughout the left lung, the largest in the left lower lobe measuring up to 5 mm, which appear overall similar in size and appearance when compared to prior. New indeterminate 3 mm nodule in the right lower lobe (3-74). Heart/Vascular Structures: Normal heart size. New small pericardial effusion. Right chest port catheter terminates in the right atrium. Lymph Nodes: Mediastinal lymph node measuring 1.1 cm in short axis, adjacent to the left upper lobe / left suprahilar mass. Pleura: New loculated small left pleural effusion with regional pleural thickening, most prominently seen in posterior left lower lung. Musculoskeletal: No acute osseous abnormality. No suspicious intraosseous lesions. Soft tissues: Normal. Upper abdomen: Limited portions of the upper abdomen are unremarkable. IMPRESSION: 1. Evaluation of the peripheral pulmonary vasculature is limited due to respiratory motion. No large central or large segmental pulmonary embolism. 2. Postsurgical change in the left upper lobe. Slight interval increase in size of a suprahilar mass along the surgical jamel in the left upper lobe, now measuring approximately 2.0 x 1.4 cm, concerning for worsening neoplastic disease. Similar associated narrowing of left upper lobe pulmonary arteries within the mass. 3. Slightly worsening nodular interstitial thickening predominantly in the left lower lobe which could be seen with lymphangitic carcinomatosis. 4. Overall similar pulmonary nodules throughout the left lung measuring up to 5 mm. New indeterminate 3 mm nodule in the right lower lobe. 5. Indeterminate mediastinal lymph node measuring 1.1 cm in short axis, adjacent to the left upper lobe / left suprahilar mass. 6. New small pericardial effusion. New loculated small left pleural effusion with regional pleural thickening. Findings could be related to the above neoplastic process. ATED BY: ABDIEL MOORE MD DICTATED DATE/TIME: 08/24/241408 SIGNED BY: ABDIEL MOORE MD SIGNED DATE/TIME: 08/24/241408 CC: [place] [id number] Ph: [phone] DIAGNOSTIC IMAGING Diagnostic Imaging Report : [id number] Signed PATIENT: HONEY PARHAM ACCT: [id number] UNIT: [id number] : 1955 LOC: [facility] ROOM / BED: [address] [place] [address] AGE / SEX: 69 / F ADM STATUS: ADM IN SERVICE 02 ORDERING PHYSICIAN: JUSTINE GALO RESIDENT PROCEDURE(s): ECIDC - ECHO 2D MODE CARDIAC DOP REASON: rule out sturctural heart disease and pericardial disease. ORDER NUMBER(s): [id number], ACCESSION NUMBER(s): [id number] APPROVED REPORT EXAM: Two-dimensional and M-mode echocardiogram with Doppler and color Doppler. Blood Pressure: 93/51 mmHg INDICATION Rule out structural heart disease RISK FACTORS Height: 64, Weight: 124 DIMENSIONS LVDd 4.1 (3.8-5.7cm) LA (2D) 3.1 (1.9-4.0cm) Aortic Root 2.7 (2.0- 3.7cm) LVDs 2.9 (2.5-4.0cm) LA (MM) (1.9-4.0cm) Aortic Cusp Exc 1.5 (1.5- 2.0cm) EF (%) 56.0 (55-70%) Rt. Atrium (1.9-4.0cm) Asc. Aorta cm Mitral Valve Mitral Mitral Stenosis E wave 0.65m/s MV Mean GR. mmHg A wave 0.73m/s MV Peak GR. mmHg E/A ratio 0.9 2D MVA cm2 DECEL Time 239ms PRESS 1/2 Time 65ms IVRT ms Dop MVA 3.39cm2 Aortic Valve Aortic Valve Aortic Stenosis V1 1.32m/s AO Mean GR. 3mmHg V2 1.35m/s AO Peak GR. 7mmHg LVOT Diameter 1.7 (1.8-2.4cm) Doppler FAN 2.22cm2 Pulmonic Valve V2 0.91m/s Tricuspid Valve TR Velocity 1.74m/s RVSP 15mmHg Conclusion Normal left ventricular size and dimension. Normal left ventricular systolic function estimated ejection fraction 60%. Normal diastolic function Normal right ventricular size and dimension. Normal right ventricular systolic function. Normal biatrial size and dimension. Normal aortic valve structure and function. Normal mitral valve structure and function. Normal tricuspid valve structure and function. The pulmonary valve is grossly normal. There is a trace pericardial effusion SIGNED BY: BENEDICTO BEST MD SIGNED DATE/TIME: 08/25/24 [id number] CC: Condition at Discharge: Fair Final Diagnosis/Problems List # 1 Sepsis #1 Community-acquired pneumonia, Gram-negative Gram-positive, atypical possible #2 Likely UTI , likely due to Gram-negative organisms #3 Possible pericarditis /pleurisy #4 due to above #5 PE ruled out #6 DVT ruled out #7 Hypochromic, normocytic anemia #8 iron-deficiency #9 Reactive leukocytosis #10 history of hypertension #11 history of hyperlipidemia #12 history of lung cancer #13 history of marijuana abuse #14 Left pleural effusion #15 post surgical changes in the left upper lobe, in situ jamel noted. 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 needs further follow up with oncologist. #19 possible pneumomediastinum, ruled out #20 Chronic constipation #21 anxiety/Insomnia Discharge Disposition: Home Discharge Instruct/Medications Diet: Cardiac 2g Na,low cholest Activity: No Restrictions, As Tolerated Follow Up/Referral: Kath [facility] and M[facility]i [facility]. Discharge clinic follow up. Medications: Home meds to continue. as per MARGUERITE Ibuprofen, colchecine, pantoprazole. Discharge Statement: "Patient was advised to return to the ER or call 911 if any headaches, dizziness, shortness of breath, chest pain, abdominal pain, bleeding, fevers, or worsening of medical condition. Patient was counseled about treatment plan, medications, possible side effects, patientverbalized understanding. All questions were answered to the best of my ability. This discharge took greater then 30 minutes in planning, reviewing documentation, counseling the patient, and discussing with other team members." ASSESSMENT ASSESSMENT Assessment Date of Service: Aug 27, 2024 Billing Provider: DAMON SPICER MD Common Visit Codes: 23602-JJN/OBS DISCH DAY >30min JUSTINE GALO Aug 27, 2024 12:19 DAMON SPICER MD Aug 27, 2024 22:31
[2024-08-27 13:59] LABS: Basophils # (auto) 0 10 ^3/uL (0-0.2); Basophils % (auto) 0.3 % (0.0-2.0); Eosinophils # (auto) 0.1 10 ^3/uL (0-0.8); Eosinophils % (auto) 1.3 % (0.0-7.0); Hematocrit 30.4 % (36.0-46.0); Lymphocytes # (auto) 0.8 10 ^3/uL (0.4-5.4); Lymphocytes % (auto) 7.3 % (10.0-50.0); Mean Corpuscular Hemoglobin 27.6 pg (28.0-32.0); Mean Corpuscular Hgb Conc. 32.7 g/dL (32.0-36.0); Mean Corpuscular Volume 84.2 fL (80.0-100.0); Monocytes # (auto) 1.3 10 ^3/uL (0-1.3); Monocytes % (auto) 13.1 % (0.0-12.0); Platelet Count (auto) 322 10^3/uL (140-450); Red Blood Cells 3.61 10^6/uL (4.0-5.20); Red Cell Distribution Width 15.7 % (11.8-14.3); White Blood Cell 10.3 10^3/uL (4.4-10.8)
[2024-08-27 14:13] LABS: Alanine Aminotransferase 13 U/L (7-40); Alkaline Phosphatase 76 U/L (46-116); Anion Gap 10 (5-15); Blood Urea Nitrogen 10 mg/dL (9-23); Calcium 9.3 mg/dL (8.7-10.4); Carbon Dioxide 25 mmol/L (20-31); Chloride 100 mmol/L (98-107); Glucose 97 mg/dL (74-106); Potassium 3.6 mmol/L (3.5-5.1)
[2024-08-27 14:14] LABS: Albumin 4.1 g/dL (3.2-4.8); Total Protein 7.1 g/dL (5.7-8.2)
[2024-08-27 14:16] LABS: Aspartate Aminotransferase 12 U/L (13-40); Bilirubin, Total 0.3 mg/dL (0.2-1.0); Sodium 135 mmol/L (136-145)
[2024-08-27] MEDS ORDERED: IBUP-1453 PO (16:25)
[2024-08-27] MEDS ORDERED: LEVO750T40 PO (16:25)
[2024-08-27] MEDS ORDERED: COLC1CAP PO (16:25)
[2024-08-27] MEDS: PANTOPRAZOLE 40 MG TAB PO ONE (16:39)
[2024-08-28] MEDS ORDERED: PANTOPRAZOLE 40 MG TAB PO SCH (06:00)
== END 2024-08-27 19:35 | disposition home or self-care (01) | DRG 871 ==
LOC: ER 08:46 → OVERFLOW 17:42 → WEST WING 08-25 04:20
PROVIDERS: ADMIT Internal Medicine; ATTEND General Practice
DX: A41.50 Gram-negative sepsis, unspecified (principal); J15.69 Pneumonia due to other Gram-negative bacteria; J90 Pleural effusion, not elsewhere classified; I30.9 Acute pericarditis, unspecified; F41.9 Anxiety disorder, unspecified; F12.10 Cannabis abuse, uncomplicated; Z20.822 Contact with and (suspected) exposure to COVID-19; D50.9 Iron deficiency anemia, unspecified; R79.89 Other specified abnormal findings of blood chemistry; D72.820 Lymphocytosis (symptomatic); I12.9 Hypertensive chronic kidney disease with stage 1 through stage 4 chronic kidney disease, or unspecified chronic kidney disease; N18.9 Chronic kidney disease, unspecified; K59.09 Other constipation; G47.00 Insomnia, unspecified; D75.839 Thrombocytosis, unspecified; E78.5 Hyperlipidemia, unspecified; Z85.118 Personal history of other malignant neoplasm of bronchus and lung; Z90.710 Acquired absence of both cervix and uterus
CPT/HCPCS: 36415; 71045; 71275; 80048; 80053; 81001; 82728; 83540; 83550; 83735; 83880; 84484; 85025; 85379; 85610; 85652; 85730; 86141; 87040; 87070; 87086; 87205; 87426; 87804; 93306; 93970; 94640; 99291; G0378; J1756; J2405